=== PATIENT | female | born 1975 | race Two or more races ===

== ENCOUNTER 2017-07-09 15:06 | Emergency (ER) | payer MEDICAID, OTHER ==
[~2017-07-09] VITALS: Ht 172.7 cm; Wt 158.8 kg
[2017-07-09] MEDS ORDERED: ONDANSETRON HCL 4 MG/2 ML VIAL IV ONE (20:15)
[2017-07-09] MEDS ORDERED: HYDROmorphone HCL 2 MG/ML VL IV ONE ×2 (20:15→21:45)
[2017-07-09 21:49] VITALS: BP 103/71
== END 2017-07-09 23:10 | disposition home or self-care (01) ==
LOC: ER 15:06
DX: M54.31 Sciatica, right side (principal); M54.16 Radiculopathy, lumbar region; M47.896 Other spondylosis, lumbar region; I10 Essential (primary) hypertension
CPT/HCPCS: 72131; 96374; 96375; 96376; 99284; J1170; J2405